=== PATIENT | female | born 1960 | race Caucasian/White ===

== ENCOUNTER 2017-04-19 12:46 | Day surgery (SDC) | payer OTHER ==
[~2017-04-19] VITALS: Ht 154.9 cm; Wt 85.0 kg
[~2017-04-19 12:46] MED LIST: CIPR500T4 PO; DICL50TA11 PO; HYDR-842 PO
[2017-04-19 13:28] VITALS: Ht 154.9 cm; Wt 85.0 kg
[2017-04-19] MEDS ORDERED: ACETAMINOPHEN PO (13:55)
[2017-04-19] MEDS ORDERED: BACTRIM PO (13:55)
[2017-04-19 15:30] VITALS: BP 117/59; PULSE 64; RESP 9
--- NOTE | 2017-04-19 16:05 | OPPN ---
Date/Time of Note Date/Time of Note DATE: 04/19/17 TIME: 16:03 Operative Report Preoperative Diagnosis Abdominal pain Chronic heartburn Change in the bowel habit Rectal bleeding Postoperative Diagnosis Gastroesophageal reflux disease Gastritis with erosions Sigmoid polyp Internal hemorrhoids Operation/Procedure Performed Esophagogastroduodenoscopy and biopsy Colonoscopy and biopsy Anesthesia Type: MAC Estimated blood loss: none Transfusion Required: no Specimens Gastric biopsy for H. pylori test Biopsy of sigmoid polyp Grafts/Implants: none Complications: no NAS GALARZA MD Apr 19, 2017 16:05
[2017-04-19 16:21] VITALS: BP 111/62; RESP 20
--- NOTE | 2017-04-19 18:35 | GILP ---
DATE OF PROCEDURE: 04/19/2017 PROCEDURES PERFORMED: 1. Esophagogastroduodenoscopy and biopsy. 2. Colonoscopy and biopsy. SURGEON: Domo Hernandez MD. PREOPERATIVE DIAGNOSES: 1. Abdominal pain. 2. Chronic heartburn. 3. Change in the bowel habits. 4. Rectal bleeding. POSTOPERATIVE DIAGNOSES: 1. Gastroesophageal reflux disease. 2. Gastritis with erosions. 3. Gastric mucosal biopsies were taken for Helicobacter pylori test. 4. Colonoscopy all the way to the cecum. 5. Small sigmoid colon polyp was biopsied. 6. Internal hemorrhoids. 7. Diverticulosis of the colon. INDICATION: Ms. Judy Velez is a 56-year-old female patient who had upper abdominal pain and chronic heartburn not responding to therapy. She also noticed change in the bowel habits and rectal bleeding. The patient was scheduled for endoscopy and colonoscopy for further evaluation. The procedures and possible complications were well explained to the patient. She understood and consented to the procedure. DESCRIPTION OF PROCEDURE: Under the influence of anesthesia, the gastroscope was carefully introduced into the esophagus under direct vision it was advanced to the stomach into the pylorus, into the duodenal bulb, and descending duodenum. Findings in the esophagus, the patient had hiatal hernia and gastroesophageal reflux disease. Stomach, she had gastritis with erosions and biopsies were taken for Helicobacter pylori test. Duodenum was normal. The colonoscope was carefully introduced in the rectum and under direct vision it was advanced all the way to the cecum. Findings, the patient had a small sigmoid colon polyp and it was removed using the biopsy forceps. She has diverticulosis of the colon and internal hemorrhoids. She tolerated the procedures very well. There was no complication from the procedures. At the end of procedure she was awake with stable vital signs and she was discharged home in the care of her family. IMPRESSION: Please see postop diagnoses. PLAN: 1. Omeprazole 40 mg p.o. every morning. 2. Anusol HC 2.5 percent cream at bedtime. 3. Await histopathology report. 4. Screening colonoscopy in 10 years. Dictated By: MD JAVIER Trejo/rox/mónica /Document#: [id number]
== END 2017-04-19 17:19 | disposition home or self-care (01) ==
LOC: GIL 12:46
PROVIDERS: ATTEND Internal Medicine Gastroenterology
DX: R19.4 Change in bowel habit (principal); D12.5 Benign neoplasm of sigmoid colon; B96.81 Helicobacter pylori [H. pylori] as the cause of diseases classified elsewhere; K21.9 Gastro-esophageal reflux disease without esophagitis; K29.60 Other gastritis without bleeding; K64.8 Other hemorrhoids; E66.9 Obesity, unspecified; Z68.35 Body mass index [BMI] 35.0-35.9, adult
CPT/HCPCS: 43239; 45380; 87081; 88305; Z7610